=== PATIENT | female | born 2000 | race Two or more races ===

== ENCOUNTER 2025-05-11 15:12 | Emergency (ER) | payer OTHER ==
[~2025-05-11] VITALS: Ht 167.6 cm; Wt 54.9 kg
[2025-05-11] MEDS ORDERED: ONDANSETRON HCL 2 MG/ML VIAL IV ONE (16:15)
[2025-05-11] MEDS ORDERED: FAMOTIDINE/PF 20 MG/2 ML VIAL IV ONE (16:15)
[2025-05-11 16:36] LABS: BASO % 0.4 % (0.1-1.2); EOS # 0.11 (0.04-0.54); EOS % 1.3 % (0.7-7.0); LYMPH # 2.29 (1.18-3.74); LYMPH % 27.4 % (19.3-53.1); MEAN PLATELET VOLUME 9.90 fl (9.4-12.4); MONO # 0.62 (0.24-0.82); MONO % 7.4 % (4.7-12.5); NEUT # 5.28 (1.56-6.13); NEUT % 63.3 % (34.0-71.1); RED CELL DISTRIBUTION WIDTH 17.2 % (11.6-14.4)
[2025-05-11 17:04] LABS: ALT/SGPT 21.0 U/L (12-78); AST/SGOT 12.0 U/L (15-37); BILIRUBIN TOTAL 0.42 mg/dL (0.3-1.2); BUN CREA RATIO 11.0 (7.0-25.0); CREATININE SERUM 0.74 mg/dL (0.55-1.02); GFR 94.86; GLOBULINA 3.5 G/DL (2.4-3.5); GLUCOSE FASTING 85.0 mg/dL (65-100); OSMOLALITY SERUM 275.0 MOSM/KG (275-295)
[2025-05-11 17:06] LABS: URINE APPEARANCE Clear; URINE BILIRRUBIN Negative (NEGATIVE); URINE BLOOD Moderate; URINE COLOR Yellow; URINE GLUCOSE Negative (NEGATIVE); URINE KETONE Negative (NEGATIVE); URINE LEUKOCYTE Large; URINE NITRATE Negative; URINE PROTEIN Negative (NEGATIVE); URINE UROBILINOGEN 0.2 E.U./dl
[2025-05-11 17:10] LABS: URINE BACTERIA 907.1 uL (0.0-1933); URINE EPITHELIAL CELLS 22.7 uL (0.0-38.8); URINE RBC 3.6 uL (0.0-20.8); URINE WBC 31.5 uL (0.0-23.2)
[2025-05-11 17:20] LABS: URINE CAST 0.00 uL (0.0-1.40)
[2025-05-11 17:24] LABS: COVID-19 AG NEGATIVE (NEGATIVE)
[2025-05-11] MEDS ORDERED: ACETAMINOPHEN 500 MG GEL..CAP PO ONE (19:45)
[2025-05-11] MEDS ORDERED: PEPCID AC20 MG PO (21:06)
[2025-05-11] MEDS ORDERED: CEPHALEXIN500 MG PO (21:06)
[2025-05-11] MEDS ORDERED: ONDANSETRON HCL4 MG PO (21:06)
== END 2025-05-11 22:02 | disposition home or self-care (01) ==
LOC: ER 15:12
PROVIDERS: General Practice
DX: O26.891 Other specified pregnancy related conditions, first trimester (principal); Z3A.01 Less than 8 weeks gestation of pregnancy; N39.0 Urinary tract infection, site not specified; Z20.822 Contact with and (suspected) exposure to COVID-19; R12 Heartburn